=== PATIENT | female | born 1985 | race Caucasian/White ===

== ENCOUNTER 2024-08-10 10:18 | Inpatient (IN) | payer BC ==
[~2024-08-10] VITALS: Ht 165.1 cm; Wt 83.4 kg
[2024-08-10 11:08] LABS: BILIRUBIN,URINE NEGATIVE (Neg); CLARITY,URINE SLIGHTLY CLOUDY (Clear); COLOR,URINE YELLOW (Yellow); GLUCOSE, URINE 250 mg/dl (Neg); KETONES,URINE 15 mg/dl (Neg); LEUKOCYTE ESTERASE ,URINE NEGATIVE (Neg); NITRITES, URINE NEGATIVE (Neg); OCCULT BLOOD,URINE TRACE-INTACT (Neg); PH,URINE 7.5 (4.8-8.0); PROTEIN,URINE NEGATIVE (Neg); UROBILINOGEN,URINE 0.2 E.U/dL (0.2-1.0)
[2024-08-10 11:10] LABS: UA COLLECTION TYPE CLN CATCH MIDSTREAM
[2024-08-10 11:11] LABS: ALANINE AMINOTRANSFERASE 14 U/L (12-78); ALBUMIN 3.7 G/DL (3.4-5.0); ALBUMIN/GLOBULIN RATIO 0.8 (1.1-1.5); ALKALINE PHOSPHATASE 112 IU/L (46-116); ANION GAP 11 (8-16); ASPARTATE AMINO TRANSFERASE 17 U/L (10-37); BILIRUBIN,TOTAL 0.5 MG/DL (0.1-1.0); BLOOD UREA NITROGEN 12 MG/DL (7-18); BUN/CREATININE RATIO 12.4 (10.0-20.0); CALCIUM 8.3 MG/DL (8.5-10.1); CHLORIDE 103 MMOL/L (99-107); CREATININE 0.97 MG/DL (0.40-0.90); GLUCOSE 204 MG/DL (70-104); LIPASE 19 U/L (16-77); SODIUM 135 MMOL/L (135-145); TOTAL PROTEIN 8.2 G/DL (6.4-8.2); eCRCL 71 ML/MIN; eGFR 65 ML/MIN
[2024-08-10 11:11] LABS: URINE HCG NEGATIVE (NEG)
[2024-08-10 11:14] LABS: BACTERIA,URINE 1+ /HPF (Neg); MUCUS STRANDS MODERATE /LPF (Neg); RBC,URINE 0-2 /HPF (0-2); SQUAMOUS EPITHELIAL CELL,UR MANY /LPF (FEW); WBC,URINE 0-4 /HPF (0-4)
[2024-08-10 11:26] LABS: BASOPHILS % (AUTO) 0.2 % (0-1); EOSINOPHILS % (AUTO) 0 % (0-6); HEMATOCRIT 39.5 % (35.0-45.0); HEMOGLOBIN 13.4 g/dl (12.0-16.0); LYMPHOCYTES # (AUTO) 0.6 X10'3 (1.1-4.8); MEAN CORPUSCULAR HEMOGLOBIN 30.1 PG (27.0-31.0); MEAN CORPUSCULAR VOLUME 88.5 FL (78-98); MEAN PLATELET VOLUME 8.1 FL (7.4-10.4); MONOCYTES # (AUTO) 0.7 X10'3 (0-0.9); MONOCYTES % (AUTO) 3.3 % (2-12); NEUTROPHILS # (AUTO) 19.7 X10'3 (1.8-7.7); NEUTROPHILS % (AUTO) 93.5 % (42-75); PLATELET COUNT 324 X10'3 (140-440); RED BLOOD COUNT 4.46 X10'6 (4.20-5.60); RED CELL DISTRIBUTION WIDTH 13.4 % (11.5-14.5); WHITE BLOOD COUNT 21.1 X10'3 (4.5-11.0)
[2024-08-10 11:30] LABS: POTASSIUM 2.9 MMOL/L (3.5-5.1)
[2024-08-10] MEDS: ondansetron/PF 4mg/2ml inj IV ONE ×2 (14:31→16:46)
[2024-08-10] MEDS: normal saline 1000ML IV soln IV ONE (14:32)
[2024-08-10] MEDS: potassium Cl 20 mEq SR tablet PO STA (15:39)
[2024-08-10] MEDS: morphine 4 MG/ML inj SYRINge IV ONE (16:49)
[2024-08-10] MEDS: piperacillin/tazo 3.375gm/50ml 50 ML IV ONE (17:06)
[2024-08-10] MEDS ORDERED: magnesium Cl slow-release 64mg tablet PO PRN (17:30)
[2024-08-10] MEDS ORDERED: potassium Cl 20 mEq SR tablet PO PRN (17:30)
[2024-08-10] MEDS ORDERED: magnesium sulf-water 4G/100mL 100 ML IV PRN (17:30)
[2024-08-10] MEDS ORDERED: magnesium sulf-water 2g/50mL 50 ML IV PRN (17:30)
[2024-08-10] MEDS ORDERED: potassium Cl 40MEQ/1/2NS 520ml 520 ML IV PRN (17:30)
[2024-08-10] MEDS ORDERED: diatr meglu/diatrizoate 30ml oral sol.-(3 dose) bottle ONE (18:50)
[2024-08-10] MEDS: diatr meglu/diatrizoate 30ml oral sol.-(3 dose) bottle PO SCH ×2 (19:53→20:36)
[2024-08-10] MEDS: K and/or MAG REPLACEMENT MC SCH (20:00)
[2024-08-10] MEDS: potassium Cl 20 mEq SR tablet PO PRN (20:35)
[2024-08-10] MEDS: docusate sod 100mg capsule PO SCH (20:47)
[2024-08-10] MEDS: normal saline 1000ml 1,000 ML IV SCH (21:53)
[2024-08-10] MEDS: HYDROcodone/acetaminophen 5mg/325mg tablet PO PRN (21:54)
[2024-08-11] MEDS: piperacillin/tazo 3.375gm/50ml 50 ML IV SCH (00:07)
[2024-08-11] MEDS ORDERED: NO HOME MEDS (00:51)
[2024-08-11 03:29] LABS: BASOPHILS # (AUTO) 0.1 X10'3 (0-0.2); BASOPHILS % (AUTO) 0.4 % (0-1); EOSINOPHILS # (AUTO) 0.1 X10'3 (0-0.9); EOSINOPHILS % (AUTO) 0.5 % (0-6); HEMATOCRIT 33.2 % (35.0-45.0); HEMOGLOBIN 11.2 g/dl (12.0-16.0); LYMPHOCYTES # (AUTO) 2.2 X10'3 (1.1-4.8); LYMPHOCYTES % (AUTO) 15.3 % (21-51); MEAN CORPUSCULAR HEMOGLOBIN 30.2 PG (27.0-31.0); MEAN CORPUSCULAR HGB CONC 33.6 g/dL (33.0-36.5); MEAN CORPUSCULAR VOLUME 89.7 FL (78-98); MEAN PLATELET VOLUME 8.2 FL (7.4-10.4); MONOCYTES # (AUTO) 0.9 X10'3 (0-0.9); NEUTROPHILS % (AUTO) 77.8 % (42-75); PLATELET COUNT 243 X10'3 (140-440); RED CELL DISTRIBUTION WIDTH 13.7 % (11.5-14.5); WHITE BLOOD COUNT 14.2 X10'3 (4.5-11.0)
[2024-08-11 03:46] LABS: ALBUMIN 2.6 G/DL (3.4-5.0); ANION GAP 7 (8-16); BLOOD UREA NITROGEN 9 MG/DL (7-18); BUN/CREATININE RATIO 10.6 (10.0-20.0); CALCIUM 7.2 MG/DL (8.5-10.1); CHLORIDE 110 MMOL/L (99-107); CREATININE 0.85 MG/DL (0.40-0.90); GLUCOSE 99 MG/DL (70-104); MAGNESIUM 1.6 MG/DL (1.5-2.4); POTASSIUM 3.9 MMOL/L (3.5-5.1); SODIUM 139 MMOL/L (135-145); TOTAL CARBON DIOXIDE 21.6 MMOL/L (24-32); eCRCL 82 ML/MIN; eGFR 75 ML/MIN
[2024-08-11 08:00] VITALS: RESP 14; O2SAT 98
[2024-08-11 10:00] VITALS: BP 133/88; PULSE 77; RESP 16; TEMP 98.5; O2SAT 99
[2024-08-11] MEDS: ondansetron/PF 4mg/2ml inj IV PRN (11:01)
[2024-08-11] MEDS ORDERED: iohexol 300mg/ml 100ml inj. ONE (11:52)
[2024-08-11 18:00] VITALS: BP 107/72; PULSE 78; RESP 14; TEMP 98.7; O2SAT 100
[2024-08-11] MEDS ORDERED: acetaminophen 325mg tablet PO PRN (18:00)
[2024-08-11] MEDS: acetaminophen 325mg tablet PO PRN (18:01)
[2024-08-11 20:00] VITALS: RESP 14; O2SAT 100
[2024-08-11 22:00] VITALS: BP 116/74; PULSE 78; RESP 16; TEMP 97.3; O2SAT 99
[2024-08-12 06:00] VITALS: BP 130/72; PULSE 92; RESP 16; TEMP 97.4; O2SAT 98
[2024-08-12 08:00] VITALS: RESP 16; O2SAT 96
[2024-08-12 10:00] VITALS: BP 123/86; PULSE 80; RESP 16; TEMP 97.8; O2SAT 96
[2024-08-12 20:00] VITALS: RESP 16; O2SAT 98
[2024-08-12 22:00] VITALS: BP 123/83; PULSE 74; RESP 16; TEMP 98.7; O2SAT 98
[2024-08-13 05:00] VITALS: RESP 16
[2024-08-13] MEDS: piperacillin/tazo 3.375gm/50ml 50 ML IV SCH (05:22)
[2024-08-13 06:00] VITALS: BP 130/70; PULSE 92; RESP 16; TEMP 97.4; O2SAT 98
[2024-08-13 10:12] LABS: BASOPHILS % (AUTO) 0.6 % (0-1); EOSINOPHILS # (AUTO) 0.1 X10'3 (0-0.9); EOSINOPHILS % (AUTO) 1.9 % (0-6); HEMATOCRIT 35.3 % (35.0-45.0); HEMOGLOBIN 11.7 g/dl (12.0-16.0); LYMPHOCYTES # (AUTO) 1.6 X10'3 (1.1-4.8); LYMPHOCYTES % (AUTO) 21.4 % (21-51); MEAN CORPUSCULAR HEMOGLOBIN 29.7 PG (27.0-31.0); MEAN CORPUSCULAR HGB CONC 33.1 g/dL (33.0-36.5); MEAN CORPUSCULAR VOLUME 89.8 FL (78-98); MEAN PLATELET VOLUME 8.4 FL (7.4-10.4); MONOCYTES # (AUTO) 0.5 X10'3 (0-0.9); MONOCYTES % (AUTO) 6.4 % (2-12); NEUTROPHILS # (AUTO) 5.3 X10'3 (1.8-7.7); NEUTROPHILS % (AUTO) 69.7 % (42-75); PLATELET COUNT 277 X10'3 (140-440); RED BLOOD COUNT 3.94 X10'6 (4.20-5.60); RED CELL DISTRIBUTION WIDTH 13.8 % (11.5-14.5); WHITE BLOOD COUNT 7.6 X10'3 (4.5-11.0)
[2024-08-13] MEDS ORDERED: LEVO-65 PO (11:09)
[2024-08-13] MEDS ORDERED: METR-159 PO (11:09)
[2024-08-13] MEDS ORDERED: ONDA-243 PO (11:24)
[2024-08-13 11:55] LABS: ALBUMIN 2.7 G/DL (3.4-5.0); ANION GAP 10 (8-16); BLOOD UREA NITROGEN 4 MG/DL (7-18); BUN/CREATININE RATIO 4.6 (10.0-20.0); CALCIUM 8.1 MG/DL (8.5-10.1); CHLORIDE 107 MMOL/L (99-107); CREATININE 0.87 MG/DL (0.40-0.90); GLUCOSE 86 MG/DL (70-104); POTASSIUM 3.7 MMOL/L (3.5-5.1); SODIUM 141 MMOL/L (135-145); TOTAL CARBON DIOXIDE 23.9 MMOL/L (24-32); eCRCL 80 ML/MIN; eGFR 73 ML/MIN
== END 2024-08-13 12:40 | disposition home or self-care (01) | DRG 871 ==
LOC: ER 10:20 → ED HOLD 17:31 → UNDODISIN 08-11 08:15 → ORTHO 4S 08-11 09:44
PROVIDERS: ADMIT Internal Medicine; ATTEND Internal Medicine
PROC: BW211ZZ Computerized Tomography (CT Scan) of Abdomen and Pelvis using Low Osmolar Contrast (ICD-10-PCS; principal; 2024-08-11)
DX: A41.9 Sepsis, unspecified organism (principal); K65.8 Other peritonitis; R65.20 Severe sepsis without septic shock; E87.6 Hypokalemia; N83.291 Other ovarian cyst, right side; Z88.2 Allergy status to sulfonamides; Z90.721 Acquired absence of ovaries, unilateral
CPT/HCPCS: 36415; 71045; 74176; 74177; 76700; 76856; 80048; 80053; 81001; 81025; 83605; 83690; 83735; 84145; 85025; 87040; 93005; 93976; 99285; C1758; G0378; J2270; J2405; J2543; J7030; Q9963; Q9967